=== PATIENT | female | born 1950 | race Caucasian/White ===

== ENCOUNTER 2016-03-16 21:43 | Emergency (ER) | payer MEDICARE, OTHER ==
[~2016-03-16] VITALS: Ht 162.6 cm; Wt 99.8 kg
[2016-03-16] MEDS ORDERED: BACL10TA PO (22:23)
[2016-03-16] MEDS ORDERED: SIMV20TA3 PO (22:25)
[2016-03-16] MEDS ORDERED: OMG1KC PO (22:25)
[2016-03-16] MEDS ORDERED: POTA10CA43 PO (22:25)
[2016-03-16] MEDS ORDERED: TOLTA4 PO (22:25)
--- NOTE | 2016-03-16 22:29 | ED Lower Extremity ---
General Chief Complaint: Lower Extremity Stated Complaint: RT LEG LAC Nursing Triage Note: pt reports hitting r mena on car door around 0. pt has aprox 5 cm lac to r mena Nursing Sepsis Screen: No Definite Risk Source: patient Exam Limitations: no limitations History of Present Illness Time seen by provider: 22:29 Initial Comments 58-year-old female patient presents to the emergency department complains of a laceration to the right anterior leg after hitting the leg on her car door at 2130 today. Denies numbness or weakness. Onset: just prior to arrival Pain/Injury Location: right leg Method of Injury: incised Modifying Factors: Worse With Other (worse with palpation) Allergies and Home Medications Allergies Coded Allergies: codeine (Verified Allergy, Unknown, 03/16/16) Home Medications Baclofen 10 Mg Tablet 10 MG PO UD (Reported) seven times a day Cephalexin 500 Mg Capsule #21 500 MG PO TID Prescribed by: ARNOL FARRIS on 03/16/162252 [place] 3 Polyunsat Fatty Acids 1,000 Mg Cap 1,000 MG PO (Reported) Potassium Chloride 10 Meq Capsule.er 10 MEQ PO (Reported) Simvastatin 20 Mg Tablet 20 MG PO DAILY (Reported) Tolterodine Tartrate 4 Mg Cap 4 MG PO BID (Reported) Tramadol HCl 50 Mg Tablet #14 50 MG PO Q4H PRN PRN PAIN Prescribed by: ARNOL FARRIS on 03/16/162252 Constitutional: no symptoms reported Musculoskeletal: No joint pain, No joint swelling Skin: see HPI Psychiatric/Neurological: Denies Numbness, Denies Paresthesia, Denies Tingling , Denies Weakness All Other Systems Reviewed Negative Unless Noted: Yes (Negative excepted noted.) Past Uiakydu-Uyozua-Hqvfty Hx Patient Social History Alcohol Use: Denies Use Recreational Drug Use: No Smoking Status: Never a Smoker Recent Foreign Travel: No Contact w/Someone Who Travel: No Recent Infectious Disease Expo: No Recent Hopitalizations: No Physical Abuse Screen: No Sexual Abuse: No Immunizations Up To Date Tetanus Booster (TDap): Less than 5yrs Seasonal Allergies Seasonal Allergies: No Surgeries HX Surgeries: Yes (lithrotripsy, l ankle) Surgeries: Appendectomy, Section, Gallbladder, Orthopedic Respiratory Hx Respiratory Disorders: Yes Respiratory Disorders: Sleep Apnea Cardiovascular Hx Cardiac Disorders: Yes Cardiac Disorders: Hypertension Neurological Hx Neurological Disorders: No Reproductive System Hx Reproductive Disorders: No Genitourinary Hx Genitourinary Disorders: Yes Genitourinary Disorders: Kidney Stones Gastrointestinal Hx Gastrointestinal Disorders: No Musculoskeletal Hx Musculoskeletal Disorders: Yes (primary lateral schlerosis) Endocrine Hx Endocrine Disorders: No HEENT HX ENT Disorders: No Cancer Hx Cancer: No Psychosocial Hx Psychiatric Problems: No Integumentary HX Skin/Integumentary Disorder: No Blood Transfusions Hx Blood Disorders: No Reviewed Nursing Assessment Reviewed/Agree w Nursing PMH: Yes Family Medical History Significant Family History: No Pertinent Family Hx Physical Exam Vital Signs Capillary Refill : Less Than 3 Seconds General Appearance: WD/WN no apparent distress Cardiovascular: normal peripheral pulses regular rate, rhythm no murmur Respiratory: lungs clear normal breath sounds no respiratory distress Legs: left leg non-tender, left leg normal inspection, bilateral leg normal range of motion, left leg no evidence of injury, right leg pain, right leg soft tissue tenderness, right leg other (6 cm laceration rt anterior mid lower leg) Knees: bilateral knee non-tender, bilateral knee normal inspection, bilateral knee normal range of motion, bilateral knee no evidence of injury Ankles: bilateral ankle non-tender, bilateral ankle normal inspection, bilateral ankle normal range of motion, bilateral ankle no evidence of injury Neurologic/Tendon: normal sensation normal motor functions normal tendon functions responds to pain no evidence tendon injury Neurologic/Psychiatric: no motor/sensory deficits alert normal mood/affect oriented x 3 Skin: normal color warm/dry ecchymosis (rt anterior mid leg ecchymosis with a 6 cm flap lac involving skin and SC tissue. no active bleeding noted. ) Laceration Repair : Wound Location: Lower Extremities Wound Length (cm): 6 Wound's Depth, Shape: flap, contused tissue, sub Q Wound Explored: clean Irrigated w/ Saline (ccs): 180 Betadine Prep?: Yes (and scrubbed with chlorhexadine and sterile saline.) Anesthesia: Lidocaine w/ Epi Volume Anesthetic (ccs): 8 Suture: Ethlion (3-0), Vicryl (3-0) Suture Size: 3-0 Number of Sutures: 8 Layer Closure?: 2 Number Deep Layer Sutures: 6 Sterile Dressing Applied?: Yes Progress Blood loss minimal. Patient tolerated the procedure well. Progress/Results/Core Measures Results/Orders My Orders Orders-ARNOL FARRIS Lidocaine/Epi 1% 1:100,000 (Xylocaine /E (1/2/17 22:45) Hydromorphone Injection (Dilaudid Inject (03/16/16 22:38) Rx-Cephalexin Capsule (Rx-Keflex Capsule (03/16/16 22:38) Im/Sub-Q Injection Non-Ab Ed (03/16/16 ) Vital Signs/I&O Blood Pressure Mean: 88 Departure Communication Progress Notes Patient seen, evaluated, and wound repair performed. Plan for discharge to home. Impression Impression: Primary Impression: Laceration of lower extremity Qualified Code: S81.811A - Laceration without foreign body, right lower leg, initial encounter Disposition: HOME, SELF-CARE Condition: Improved Departure-Patient Inst. Decision time for Depature: 22:51 Referrals: NO,LOCAL PHYSICIAN (PCP/Family) Primary Care Physician Patient Instructions: Laceration Repair With Stitches (DC) Add. Discharge Instructions: All discharge instructions reviewed with patient and/or family. Voiced understanding. Medications as instructed. Tylenol [id number] as directed for pain. Ibuprofen [id number] as directed for pain. Elevate the lower extremity on pillows. Ice packs or heating pads as needed for pain. Tomorrow morning remove the bandage, shower with antibacterial soap, pat dry, apply triple antibiotic ointment twice daily for 3 days and cover with a bandage. Return to the emergency department in 12 days for suture removal. Follow-up with your family practitioner for recheck if needed. Return to the emergency department immediately for worsened pain, redness, drainage, fever, or any other concerns. Scripts Tramadol HCl 50 Mg [id number] Mg PO Q4H PRN PAIN #14 TAB Ref 0 Prov:ARNOL FARRIS 03/16/16 Cephalexin 500 Mg [id number] Mg PO TID #21 CAP Ref 0 Prov:ARNOL FARRIS 03/16/16 Work/School Note: Local Medical Staff Listing ARNOL FARRIS Mar 16, 2016 22:29
[2016-03-16] MEDS ORDERED: RX-CEPHALEXIN (KEFLEX) 250 MG CAP PPK#4 PO STA (22:38)
[2016-03-16] MEDS ORDERED: HYDROmorphone (DILAUDID) 2 MG/ML VIAL IM STA (22:38)
[2016-03-16] MEDS ORDERED: LIDOCAINE/EPI 1%-1:100,000 (XYLOCAINE) 20ML INJ ONE (22:45)
[2016-03-16] MEDS ORDERED: TRAM50TA2 PO (22:53)
[2016-03-16] MEDS ORDERED: CEPH500C PO (22:53)
[2016-03-17 01:06] VITALS: BP 132/71
== END 2016-03-17 01:06 | disposition home or self-care (01) ==
LOC: ER 21:47
DX: S81.811A Laceration without foreign body, right lower leg, initial encounter (principal); W22.09XA Striking against other stationary object, initial encounter; Y99.8 Other external cause status
CPT/HCPCS: 96372